=== PATIENT | female | born 1955 | race Caucasian/White ===

== ENCOUNTER 2017-11-04 15:09 | Outpatient (CLI) | payer OTHER | END 2017-11-04 15:10 | disposition home or self-care (01) | LOC: BICMAMMO 15:09 | PROVIDERS: ATTEND Family Medicine | DX: Z13.820 Encounter for screening for osteoporosis (principal); Z13.29 Encounter for screening for other suspected endocrine disorder; S32.010A Wedge compression fracture of first lumbar vertebra, initial encounter for closed fracture; M85.852 Other specified disorders of bone density and structure, left thigh | CPT/HCPCS: 77080 ==

== ENCOUNTER 2018-10-19 14:26 | Outpatient (CLI) | payer OTHER ==
--- NOTE | 2018-10-19 15:27 | RAD ---
TWO VIEW CHEST: HISTORY: Cough. FINDINGS: The lungs appear clear of infiltrate. The heart size is upper normal. There is mild vascular engorg ement. Dual-lead pacemaker leads are seen, in appropriate position. There are mild to moderate dege nerative changes in the spine. IMPRESSION: No acute process. POS: H
== END 2018-10-19 14:27 | disposition home or self-care (01) ==
LOC: BICRAD 14:26
PROVIDERS: ATTEND Family Medicine
DX: R05 Cough (principal)
CPT/HCPCS: 71046